=== PATIENT | male | born 1960 | race Caucasian/White ===

== ENCOUNTER 2020-05-12 07:08 | Emergency (ER) | payer OTHER ==
[~2020-05-12] VITALS: Ht 177.8 cm; Wt 71.0 kg
--- NOTE | 2020-05-12 07:29 | NUR ---
PT AMBULATED WITH CHELSEA PEREZ TO ROOM. STEADY GAIT.
--- NOTE | 2020-05-12 07:31 | NUR ---
PT PRESENTED TO ED D/T ABD PAIN X "WEEKS." PT STATES INCREASINGLY GETTING WORSE OVER THE PAST COUPLE DAYS. 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 HE WANTS TO DO A SCAN ON MY LIVER BUT THAT IS NOT FOR WEEKS." +N/V. STATES UNABLE TO KEEP FOOD DOWN.
[2020-05-12] MEDS ORDERED: DOXY50CA42 PO (07:36)
[2020-05-12] MEDS ORDERED: OXYC-302 PO (07:36)
[2020-05-12] MEDS ORDERED: RUXO20TA PO (07:36)
--- NOTE | 2020-05-12 07:38 | NUR ---
PA AT BEDSIDE.
--- NOTE | 2020-05-12 07:47 | NUR ---
URINE COLLECTION CUP PROVIDED TO PT. PT STATES "WILL TRY" AND PROVIDE RN WITH A URINE SAMPLE.
--- NOTE | 2020-05-12 07:53 | NUR ---
UA COLLECTED AND SENT TO LAB.
[2020-05-12 08:10] LABS: MICROSCOPIC NOT IND
--- NOTE | 2020-05-12 08:44 | NUR ---
US AT BEDSIDE.
[2020-05-12 08:47] LABS: ALANINE AMINOTRANSFERASE 105 U/L (12-78); ALBUMIN 3.8 g/dL (3.4-5.0); ANION GAP 5 mmol/L (5-15); CALCIUM 8.8 mg/dL (8.5-10.1); CHLORIDE 106 mmol/L (98-107); CREATININE 0.89 mg/dL (0.7-1.3)
[2020-05-12 08:49] LABS: ALKALINE PHOSPHATASE 142 U/L (45-117); BILIRUBIN,TOTAL 0.3 mg/dL (0.2-1.0); TOTAL PROTEIN 7.3 g/dL (6.4-8.2)
--- NOTE | 2020-05-12 08:50 | NUR ---
PT AMBULATED TO XR ROOM WITH TECH. STEADY GAIT.
[2020-05-12 08:54] LABS: MEAN CORPUSCULAR HEMOGLOBIN 33.1 pg (27.5-34.5); MEAN CORPUSCULAR HGB CONC 32.8 g/dL (33.2-36.2); MEAN PLATELET VOLUME 9.6 fL (7.4-10.4); PLATELET COUNT 395 x10^3/uL (130-400); RED BLOOD COUNT 3.43 x10^6/uL (4.38-5.82); RED CELL DISTRIBUTION WIDTH 23.6 % (9.4-14.8)
--- NOTE | 2020-05-12 09:16 | NUR ---
PT RESTING COMFORTABLY ON GURNEY WATCHING TV. RN UPDATED PT ON POC. AWAITING LAB RESULTS. NO OTHER NEEDS AT THIS TIME. RN TO CONTINUE TO MONITOR.
[2020-05-12 09:27] LABS: MD YES
--- NOTE | 2020-05-12 09:42 | NUR ---
ERMD AT BEDSIDE.
--- NOTE | 2020-05-12 10:07 | NUR ---
PT DC HOME IN A STABLE CONDITION. DC INSTRUCTIONS WERE DISCUSSED WITH PT. PT VERBALIZED UNDERSTANDING. NO FURTHER QUESTIONS OR CONCERNS EXPRESSED AT THAT TIME. PT AMBULATED WITH RN TO DC DESK.
[2020-05-12 10:08] VITALS: BP 129/77
[2020-05-12 10:20] LABS: BAND#(MANUAL) 0.13 x10^3/uL; BANDS%(MANUAL) 1 % (0-7); BASOS#(MANUAL) 0.13 x10^3/uL (0-0.1); BASOS% (MANUAL) 1 % (0-1); EOS#(MANUAL) 0.92 x10^3/uL (0.0-0.4); EOS% (MANUAL) 7 % (1-7); LYMPH#(MANUAL) 2.11 x10^3/uL (1-3.4); LYMPHS% (MANUAL) 16 % (22-44); METAMYELOCYTES# (MANUAL) 0.26 x10^3/uL (0-0); METAMYELOCYTES% (MANUAL) 2 % (0-1); MONOS#(MANUAL) 0.53 x10^3/uL (0.3-2.7); MONOS% (MANUAL) 4 % (2-9); MYELOCYTES# (MANUAL) 0.26 x10^3/uL (0-0); MYELOCYTES% (MANUAL) 2 % (0-0); SEG#(MANUAL) 8.58 x10^3/uL (1.8-6.8); SEGS% (MANUAL) 65 % (42-75)
[2020-05-12 10:21] LABS: OTHER CELLS # (MANUAL) 0.26 x10^3/uL (0-0); OTHER CELLS % (MANUAL) 2 % (0-0)
[2020-05-12 10:22] LABS: ACANTHOCYTES 1+; ANISOCYTOSIS 1+; HYPOCHROMIA 1+; OVALOCYTES 1+; POLYCHROMASIA 1+; SCHISTOCYTES 1+
[2020-05-12 10:23] LABS: ECHINOCYTES 1+
[2020-05-12 10:24] LABS: <PLATELET ESTIMATE> ADEQUATE; GIANT PLATELETS 1+; HOWELL-JOLLY BODIES 1+; LARGE PLATELETS 1+
== END 2020-05-12 10:10 | disposition home or self-care (01) ==
LOC: ED 09:24
DX: G89.29 Other chronic pain (principal); Z20.828 Contact with and (suspected) exposure to other viral communicable diseases; R10.11 Right upper quadrant pain; R11.0 Nausea; Z90.81 Acquired absence of spleen
CPT/HCPCS: 36415; 74021; 76700; 80053; 81003; 83690; 85025; 87635; 99285